=== PATIENT | male | born 1985 | race Caucasian/White ===

== ENCOUNTER 2024-01-04 21:01 | Emergency (ER) | payer OTHER ==
[~2024-01-04] VITALS: Ht 177.8 cm; Wt 104.3 kg
== END 2024-01-04 23:00 | disposition home or self-care (01) ==
LOC: ER 21:01
DX: S93.402A Sprain of unspecified ligament of left ankle, initial encounter (principal); W01.10XA Fall on same level from slipping, tripping and stumbling with subsequent striking against unspecified object, initial encounter; Z88.2 Allergy status to sulfonamides
CPT/HCPCS: 29515; 73610; 99283-25